=== PATIENT | male | born 1940 | race Caucasian/White ===

== ENCOUNTER 2019-02-01 12:04 | Inpatient (IN) | payer OTHER ==
[2019-02-01] VITALS (12 sets, daily range): BP systolic 84–121; BP diastolic 31–52
[~2019-02-01] VITALS: Ht 182.9 cm; Wt 127.9 kg
[~2019-02-01 12:04] MED LIST: FENOFIBRATE160 MG PO; FLOMAX0.4 MG PO; JANUVIA100 MG PO; LISINOPRIL-HCT1 EAC1 PO; METFORMIN HCL500 MG PO; PIOGLITAZONE15 MG; PROZAC20 MG PO; SIMVASTATIN40 MG PO; TIROSINT88 MCG PO; TRAMADOL 50 MG50 MG PO
[2019-02-01] MEDS ORDERED: MAGOX 400400 MG PO (12:12)
[2019-02-01] MEDS ORDERED: PROSCAR 5MG TABL5 MG PO (12:12)
[2019-02-01] MEDS ORDERED: TRIPLE ANTIBIO1 EAC1 TOP (12:12)
[2019-02-01] MEDS ORDERED: VITAMIN D250000 UNIT PO (12:13)
[2019-02-01 12:47] LABS: ABSOLUTE BASOPHILS 0.1 thou/uL (0.0-0.2); ABSOLUTE EOSINOPHILS 0.1 thou/uL (0.0-0.7); ABSOLUTE LYMPHOCYTES 1.1 thou/uL (0.8-5.3); ABSOLUTE MONOCYTES 0.4 thou/uL (0.0-1.2); ABSOLUTE NEUTROPHILS 7.3 thou/uL (1.6-8.1); BASOPHILS 0.7 %; EOSINOPHILS 1.1 %; HEMATOCRIT 29.4 % (42.0-52.0); HEMOGLOBIN 9.7 gm/dL (14.0-18.0); LYMPHOCYTES 12.2 %; MCH 27.2 pg (26.0-34.0); MCV 82.4 fL (80.0-100.0); MONOCYTES 4.8 %; MPV 7.2 fl. (7.2-11.1); NUCLEATED RBCS 0 /100WBC; PLATELET COUNT* 492 thou/uL (150-400); POLYS 81.2 %; RBC 3.56 mil/uL (4.50-6.00); RDW-CV 15.2 % (10.5-14.5); WBC 8.9 thou/uL (4.0-11.0)
[2019-02-01 12:58] LABS: ANION GAP 13 mmol/L (7-16); BUN 45 mg/dL (7-18); CALCIUM 9.3 mg/dL (8.5-10.1); CHLORIDE 93 mmol/L (98-107); CO2 23 mmol/L (21-32); CREATININE 1.7 mg/dL (0.6-1.3); GLUCOSE 239 mg/dL (70-99); POTASSIUM 5.2 mmol/L (3.5-5.1); SODIUM 129 mmol/L (136-145)
[2019-02-01 13:00] LABS: APTT 22.5 Seconds (25.0-31.3); INR 0.9; PROTIME 9.6 Seconds (9.20-11.50)
[2019-02-01 13:08] LABS: ALBUMIN 3.2 g/dL (3.4-5.0); ALKALINE PHOSPHATASE 71 U/L (46-116); SGOT 21 U/L (15-37); SGPT 20 U/L (30-65); TROPONIN-I LEVEL <0.06 ng/mL (<0.06)
[2019-02-01 13:23] LABS: TOTAL BILIRUBIN 0.1 mg/dL (<0.1-1.0)
--- NOTE | 2019-02-01 14:57 | NUR ---
CENTRAL LINE PLACEMENT CONFIRMED BY
[2019-02-01 15:30] LABS: URINE BILIRUBIN NEGATIVE (Negative); URINE BLOOD 3+ (Negative); URINE CLARITY CLEAR; URINE COLOR YELLOW; URINE GLUCOSE-RANDOM NEGATIVE (Negative); URINE KETONES NEGATIVE (Negative); URINE LEUKOCYTES-REFLEX NEGATIVE (Negative); URINE NITRITE-REFLEX NEGATIVE (Negative); URINE PROTEIN NEGATIVE (Negative); URINE SPECIFIC GRAVITY 1.015 (1.005-1.030); URINE UROBILINOGEN 0.2 E.U./dl (0.2-1.0)
[2019-02-01 15:38] LABS: SQUAMOUS 0-3 Few /LPF (0-3); URINE WBC-REFLEX 0-5 Rare /HPF (0-5)
[2019-02-01 15:39] LABS: BACTERIA-REFLEX 1-9 Few /HPF (None Seen); CASTS None Seen /LPF (None Seen); CRYSTALS None Seen /LPF (None Seen); URINE RBC 0-2 Rare /HPF (0-2)
--- NOTE | 2019-02-01 17:19 | NUR ---
PATIENT ADMITTED TO ICU ROOM 5 FOR HYPOTENSION. PRESSURES REMAIN STABLE AT THIS TIME. CLEAR LIQUIDS ORDERED, NO EVIDENCE OF STOOLS AT THIS TIME. PATIENT DOES REPORT DARK TARRY STOOLS, GI CONSULTED. NSR. BED IN LOWEST POSITION, CALL LIGHT IN REACH, USER ACCEPTANCE TESTER IN PLACE. SON WENT HOME FOR THE NIGHT.
[2019-02-02] VITALS (26 sets, daily range): BP systolic 86–117; BP diastolic 36–61
[2019-02-02 02:54] LABS: ABSOLUTE EOSINOPHILS 0.2 thou/uL (0.0-0.7); ABSOLUTE LYMPHOCYTES 1.2 thou/uL (0.8-5.3); ABSOLUTE MONOCYTES 0.6 thou/uL (0.0-1.2); ABSOLUTE NEUTROPHILS 5.9 thou/uL (1.6-8.1); BASOPHILS 0.5 %; EOSINOPHILS 2.4 %; HEMATOCRIT 20.8 % (42.0-52.0); LYMPHOCYTES 15.4 %; MCHC 32.8 g/dL (28.0-37.0); MCV 82.2 fL (80.0-100.0); MONOCYTES 7.2 %; MPV 6.3 fl. (7.2-11.1); NUCLEATED RBCS 0 /100WBC; POLYS 74.5 %; RBC 2.52 mil/uL (4.50-6.00); RDW-CV 14.8 % (10.5-14.5); WBC 7.9 thou/uL (4.0-11.0)
[2019-02-02 02:59] LABS: PLATELET COUNT* 347 thou/uL (150-400)
[2019-02-02 03:00] LABS: HEMOGLOBIN 6.8 gm/dL (14.0-18.0)
[2019-02-02 03:05] LABS: CALCIUM 7.5 mg/dL (8.5-10.1); CREATININE 1.1 mg/dL (0.6-1.3); POTASSIUM 4.6 mmol/L (3.5-5.1)
--- NOTE | 2019-02-02 05:13 | NUR ---
ASSUMED CARE AT 1910H, ON ROOM AIR AND PALE IN APPEARANCE. NO BM THE WHOLE SHIFT AND BP WAS SOFT. INFORM GI ABOUT CRITICAL RESULT OF HGB WITH ORDERS CARRIED OUT. WAITING FOR THE BLOOD. CONTINUE MONITORING AND TOWARDS GOAL.
[2019-02-02 09:15] LABS: HEMATOCRIT 25.5 % (42.0-52.0); HEMOGLOBIN 8.5 gm/dL (14.0-18.0)
[2019-02-02 11:30] LABS: HEMATOCRIT 22.3 % (42.0-52.0); HEMOGLOBIN 7.4 gm/dL (14.0-18.0); MCH 27.5 pg (26.0-34.0); MCHC 33.2 g/dL (28.0-37.0); MCV 82.8 fL (80.0-100.0); MPV 6.3 fl. (7.2-11.1); RBC 2.7 mil/uL (4.50-6.00); RDW-CV 14.4 % (10.5-14.5); WBC 7.6 thou/uL (4.0-11.0)
--- NOTE | 2019-02-02 12:28 | NUR ---
INITIAL ASSESSMENT: Pt evaluated for d/c planning needs. Pt is alert and is a poor historian. Pt lives at home with son and was independent with ADL's prior to admission. Pt plans on returning home on d/c from hospital. Will remain available to assist as needed.
--- NOTE | 2019-02-02 17:47 | NUR ---
VSS.CARDIAC MONITORING IN PLACE, TRACING SR.PT REMAINS ON ROOM AIR.CONTACT ISOLATION MAINTAINED.CHRISTOPHER SECURE AND PATENT.RIGHT AC IV AND LEFT AC IV SALINE LOCKED AND PATENT.RIGHT JUGULAR PATENT WITH IVF INFUSING PER ORDERS.PT TO BE NPO AT MIDNIGHT FOR EGD IN THE AM.PT INFORMED OF PLAN OF CARE AND COMMUNICATES UNDERSTANDING.Q2 HOUR POSITION CHANGE COMPLETED.PT LEFT RESTING IN BED WITH CALL LIGHT AND FALL PRECAUTIONS IN PLACE.WILL CONTINUE TO MONITOR FOR DURATION OF SHIFT.
[2019-02-02 20:12] LABS: HEMATOCRIT 21.2 % (42.0-52.0)
[2019-02-02 20:15] LABS: HEMOGLOBIN 6.9 gm/dL (14.0-18.0)
[2019-02-03] VITALS (26 sets, daily range): BP systolic 73–130; BP diastolic 28–93
[2019-02-03 00:58] LABS: HEMATOCRIT 24.9 % (42.0-52.0); HEMOGLOBIN 8.2 gm/dL (14.0-18.0)
[2019-02-03 02:06] LABS: GLYCOHEMOGLOBIN (HGB A1C) 8.1 % (4.8-5.6)
[2019-02-03 04:13] LABS: HEMATOCRIT 20.7 % (42.0-52.0); HEMOGLOBIN 7.1 gm/dL (14.0-18.0); MCH 28.1 pg (26.0-34.0); MCHC 34.4 g/dL (28.0-37.0); MCV 81.6 fL (80.0-100.0); MPV 6.3 fl. (7.2-11.1); RBC 2.53 mil/uL (4.50-6.00); RDW-CV 14.6 % (10.5-14.5); WBC 8.4 thou/uL (4.0-11.0)
--- NOTE | 2019-02-03 06:38 | NUR ---
ASSUMED CARE AT 1910, ON ROOM AIR.FOR EGD AND COLONOSCOPY TODAY.BOWEL PREP DONE BUT STILL NOT CLEAR.INFORM GI DOCTOR WITH ORDERS CARRIED OUT.EGD AND COLONOSCOPY WILL BE DONE AT 1300H.NO DISTRESS.LATEST HGB 7.1.CONTINUE MONITORING AND TOWARDS GOAL.
[2019-02-03 09:26] LABS: CALCIUM 7.4 mg/dL (8.5-10.1); POTASSIUM 4.3 mmol/L (3.5-5.1)
[2019-02-03 09:27] LABS: HEMATOCRIT 20.2 % (42.0-52.0)
[2019-02-03 09:31] LABS: HEMOGLOBIN 6.9 gm/dL (14.0-18.0)
[2019-02-03 16:05] LABS: HEMATOCRIT 20.3 % (42.0-52.0); MCH 28.3 pg (26.0-34.0); MCHC 33.9 g/dL (28.0-37.0); MCV 83.4 fL (80.0-100.0); MPV 6.3 fl. (7.2-11.1); RBC 2.43 mil/uL (4.50-6.00); RDW-CV 14.9 % (10.5-14.5); WBC 6.4 thou/uL (4.0-11.0)
[2019-02-03 16:07] LABS: HEMOGLOBIN 6.9 gm/dL (14.0-18.0)
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
--- NOTE | 2019-02-03 17:46 | NUR ---
VSS.HAT AND CAP OPENER IN PLACE,TRACING SR.RIGHT JUGULAR PATENT AND SALINE LOCKED.RIGHT AND LEFT AC IV PATENT AND SALINE LOCKED.CHRISTOPHER SECURE AND PATENT.EGD/COLON COMPLETED TODAY.PT ADVANCED AND TOLERATING CLEAR LIQUID DIET.CONTACT ISOLATION MAINTAINED.PT MADE TELEMETRY STATUS AND WILL TRANSFER TO TELE AFTER SHIFT CHANGE.PT HAS BEEN INFORMED AND COMMUNICATES UNDERSTANDING.Q2 HOUR POSITION CHANGE COMPLETED.CALL LIGHT AND FALL PRECAUTIONS IN PLACE.WILL CONTINUE TO MONITOR FOR DURAITON OF SHIFT.
[2019-02-03 21:00] LABS: HEMATOCRIT 20.3 % (42.0-52.0)
[2019-02-03 21:02] LABS: HEMOGLOBIN 6.7 gm/dL (14.0-18.0)
[2019-02-04 00:15] VITALS: BP 110/38
[2019-02-04 03:00] VITALS: BP 107/42
--- NOTE | 2019-02-04 05:38 | NUR ---
PATIENT PARTIALLY PROGRESSING TOWARDS GOALS: VSS ON ROOM AIR. PATIENT DENIES PAIN AND DISCOMFORT. REPOSITIONED Q2H. BORDERED FOAM DRESSING APPLIED TO COCCYX WOUND. CHRISTOPHER REMAINS IN PLACE WITH GOOD OUTPUT. PATIENT RECEIVED ONE UNIT OF PRBC FOR LOW HGB. TOLERATED BLOOD TRANSFUSION WITH NO REACTIONS. REDRAW ORDERED FOR THIS AM. CALL LIGHT WITHIN REACH
[2019-02-04 06:38] LABS: HEMATOCRIT 21.4 % (42.0-52.0); MCHC 32.8 g/dL (28.0-37.0); MCV 82.1 fL (80.0-100.0); MPV 6.3 fl. (7.2-11.1); RBC 2.6 mil/uL (4.50-6.00); WBC 8.4 thou/uL (4.0-11.0)
[2019-02-04 07:50] VITALS: BP 122/54
[2019-02-04 09:19] LABS: CALCIUM 7.4 mg/dL (8.5-10.1); CREATININE 0.8 mg/dL (0.6-1.3); POTASSIUM 3.9 mmol/L (3.5-5.1)
[2019-02-04 11:58] VITALS: BP 125/53
--- NOTE | 2019-02-04 12:10 | NUR ---
SW met with pt to discuss safe dc planning. SW informed pt of recommendation for SNF placement and pt was not open to very many options for SNF. Pt said he does not want [facility], [facility], and other places pt named but then pt also was not sure of what would be his preference. Pt okay with SW sending referral to [facility]; pt was trying to think of a place near [place]. SW faxed referral for SNF to [facility] and will continue to follow to assist with safe dc placement. Therapy notes pending. [facility] ph [phone] fax [phone]
--- NOTE | 2019-02-04 14:59 | NUR ---
ASSESSMENT COMPLETE. PT ALERT AND ORIENTED X3, FORGETFUL AT TIMES. PT IS BLIND. CASE MANAAGEMENT CONSULT FOR PLACEMENT. CT CHEST THIS AFTERNOON. PT UP IN CHAIR PART OF THE DAY. PT/OT. ISOLATION DC'D. Q2 TURN. SR WITH 1ST DEGREE ON MONITOR. VSS. ACCU CHECK ACHS. CHRISTOPHER IN PLACE WITH ADEQUATE OUTPUT. SEE ASSESSMENT AND VITALS FOR OTHER DETAILS. CALL LIGHT WITHIN REACH, WILL CONTINUE PLAN OF CARE
[2019-02-04 16:00] VITALS: BP 131/60
[2019-02-04 20:00] VITALS: BP 113/53
[2019-02-05] VITALS: BP 92/40
[2019-02-05 04:00] VITALS: BP 103/47
--- NOTE | 2019-02-05 04:27 | NUR ---
PATIENT PROGRESSING TOWARDS GOALS: VSS ON ROOM AIR. PATIENT DENIES PAIN AND DISCOMFORT. CHRISTOPHER REMAINS IN PLACE WITH ADEQUATE OUTPUT. REPOSITIONED Q2H WHEN PATIENT ALLOWS. EDUCATED PATIENT ON IMPORTANCE OF REPOSITIONING AND PREVENTION OF WOUNDS, VERBALIZES UNDERSTANDING BUT STATES "I AM COMFORTABLE WHERE I AM." NO BLEEDING NOTED THIS SHIFT. CALL LIGHT WITHIN REACH
[2019-02-05 12:06] VITALS: BP 107/44
[2019-02-05 15:41] VITALS: BP 115/49
[2019-02-05 15:57] LABS: ABSOLUTE EOSINOPHILS 0.2 thou/uL (0.0-0.7); ABSOLUTE LYMPHOCYTES 0.9 thou/uL (0.8-5.3); ABSOLUTE MONOCYTES 0.6 thou/uL (0.0-1.2); ABSOLUTE NEUTROPHILS 6.1 thou/uL (1.6-8.1); BASOPHILS 0.6 %; EOSINOPHILS 3.1 %; HEMATOCRIT 22.1 % (42.0-52.0); HEMOGLOBIN 7.3 gm/dL (14.0-18.0); LYMPHOCYTES 11.2 %; MCH 27.4 pg (26.0-34.0); MCHC 32.9 g/dL (28.0-37.0); MCV 83.3 fL (80.0-100.0); MONOCYTES 7.7 %; MPV 6.6 fl. (7.2-11.1); NUCLEATED RBCS 0 /100WBC; PLATELET COUNT* 339 thou/uL (150-400); POLYS 77.4 %; RBC 2.65 mil/uL (4.50-6.00); RDW-CV 15.9 % (10.5-14.5); WBC 7.9 thou/uL (4.0-11.0)
[2019-02-05 16:13] LABS: CALCIUM 7.6 mg/dL (8.5-10.1); POTASSIUM 3.6 mmol/L (3.5-5.1); TOTAL BILIRUBIN 0.1 mg/dL (<0.1-1.0); TOTAL PROTEIN 5.5 g/dL (6.4-8.2)
--- NOTE | 2019-02-05 16:46 | NUR ---
ASSUMED PT CARE AT 0700, PT A&O X4, VSS, RA, PT CHANGED TO MED SURG STATUS, FULL ASSESSMENT CHARTED. PT REMAINS ON IV FLUIDS AND ABTS, TOLERATING WELL. CHRISTOPHER CATH PATENT AND DRAINING YELLOW URINE WITH MINIMAL SEDIMENT. HOURLY ROUNDING COMPLETED.
[2019-02-05 17:04] LABS: ESR (SEDRATE) 37 mm/hr (0-20)
[2019-02-05 22:30] VITALS: BP 109/51
--- NOTE | 2019-02-05 22:30 | NUR ---
ASSUMED CARE OF PT AFTER REPORT AT 1930. PT A&OX4. VSS. PHYSICAL ASSESSMENT COMPLETED AND CHARTED. PT ON RA. PT ON MED SURG STATUS. PT DENIES ANY PAIN OR DISCOMFORT. PT TURNED TO SIDES. MEDS GIVEN PER SEP. CALL LIGHT WITHIN REACH. GAVE REPORT TO ROSCOE FINNEY P TRANSFERRED TO RM 112 VIA BED.
--- NOTE | 2019-02-06 04:43 | NUR ---
PT TRASFERED FROM 2 EAST AT 2225. ALERT AND ORIENTED. VITALS STABLE RA. IV FLUID, ANTIBIOTICS GIVEN ORDERED. CHRISTOPHER IN PLACE, DRAINING LIGHT YELLOW URINE. PT DENIED PAIN. NO NAUSEA OR VOMITING. HOURLY ROUNDING COMPLETED. WILL CONTINUE TO MONITOR.
[2019-02-06 06:10] LABS: ABSOLUTE EOSINOPHILS 0.3 thou/uL (0.0-0.7); ABSOLUTE LYMPHOCYTES 1.5 thou/uL (0.8-5.3); ABSOLUTE MONOCYTES 0.6 thou/uL (0.0-1.2); ABSOLUTE NEUTROPHILS 4.5 thou/uL (1.6-8.1); BASOPHILS 0.4 %; EOSINOPHILS 4.5 %; HEMATOCRIT 20.3 % (42.0-52.0); LYMPHOCYTES 21.4 %; MCH 27.5 pg (26.0-34.0); MCV 83.2 fL (80.0-100.0); MONOCYTES 8.3 %; MPV 6.6 fl. (7.2-11.1); NUCLEATED RBCS 0 /100WBC; PLATELET COUNT* 305 thou/uL (150-400); POLYS 65.4 %; RBC 2.44 mil/uL (4.50-6.00); RDW-CV 16.2 % (10.5-14.5); WBC 6.8 thou/uL (4.0-11.0)
[2019-02-06 06:12] LABS: CALCIUM 7.6 mg/dL (8.5-10.1); CREATININE 0.9 mg/dL (0.6-1.3); POTASSIUM 3.6 mmol/L (3.5-5.1)
[2019-02-06 06:20] LABS: HEMOGLOBIN 6.7 gm/dL (14.0-18.0)
[2019-02-06 07:20] VITALS: BP 114/56
[2019-02-06 09:59] VITALS: BP 110/50; BP 110/52; BP 114/53; BP 117/56
[2019-02-06 13:57] LABS: HEMATOCRIT 21.7 % (42.0-52.0); HEMOGLOBIN 7.3 gm/dL (14.0-18.0)
[2019-02-06 16:00] VITALS: BP 119/63
--- NOTE | 2019-02-06 17:00 | NUR ---
PT REMAINED ALERT AND ORIENTED, SOME CONFUSION PRESENT AND PT HARD OF HEARING. PT REFUSES TO GET UP OUT OF BED AND REQUESTS THE BEDPAN, PT STATES THEY DO NOT GET UP AT HOME. 1 UNIT OF BLOOD GIVEN PER PROTOCOL. FLUIDS AND ABX RUNNING ORDERED. PICTURE OF BOTTOM TAKEN. FALL RISK PRECAUTIONS IN PLACE. HOURLY ROUNDING COMPLETED. WILL CONTINUE TO MONITOR.
[2019-02-06 20:20] VITALS: BP 115/56
[2019-02-07 01:30] VITALS: BP 140/57
--- NOTE | 2019-02-07 05:38 | NUR ---
PT ALERT AND ORIENTED. MEDS, FLUIDS GIVEN ORDERED. PT DENIED PAIN. CHRISTOPHER IN PLACE. HOURLY ROUNDINGS, Q2TURN COMPLETED. WILL CONTINUE TO MONITOR.
[2019-02-07 06:44] LABS: ABSOLUTE EOSINOPHILS 0.3 thou/uL (0.0-0.7); ABSOLUTE LYMPHOCYTES 1.3 thou/uL (0.8-5.3); ABSOLUTE MONOCYTES 0.7 thou/uL (0.0-1.2); ABSOLUTE NEUTROPHILS 5.1 thou/uL (1.6-8.1); BASOPHILS 0.6 %; EOSINOPHILS 4.3 %; HEMATOCRIT 22.5 % (42.0-52.0); HEMOGLOBIN 7.4 gm/dL (14.0-18.0); LYMPHOCYTES 17.8 %; MCH 27.4 pg (26.0-34.0); MCHC 32.7 g/dL (28.0-37.0); MCV 83.9 fL (80.0-100.0); MONOCYTES 9.1 %; MPV 6.6 fl. (7.2-11.1); NUCLEATED RBCS 0 /100WBC; PLATELET COUNT* 294 thou/uL (150-400); POLYS 68.2 %; RBC 2.69 mil/uL (4.50-6.00); RDW-CV 16.2 % (10.5-14.5); WBC 7.5 thou/uL (4.0-11.0)
[2019-02-07 06:53] LABS: ALBUMIN 1.9 g/dL (3.4-5.0); CALCIUM 7.5 mg/dL (8.5-10.1); CREATININE 0.9 mg/dL (0.6-1.3); POTASSIUM 3.3 mmol/L (3.5-5.1); TOTAL BILIRUBIN 0.3 mg/dL (<0.1-1.0); TOTAL PROTEIN 5.1 g/dL (6.4-8.2)
[2019-02-07 08:45] VITALS: BP 136/59
[2019-02-07 10:37] LABS: % SATURATION 6 % (20-39); IRON 15 ug/dL (50-175)
--- NOTE | 2019-02-07 12:00 | NUR ---
SPOKE WITH YASMEEN/LAWSON BERNABE [phone]. SHE SAID SHE DID NOT RECEIVE A REFERRAL ON THURSDAY. PRINTED NEW REFERRAL AND FAXED TO HER AT [phone]. INFORMED HER PT.NOT READY FOR DISCHARGE TODAY.
--- NOTE | 2019-02-07 19:00 | NUR ---
PATIENT PLEASANT AND COOPERATIVE W/ ASSESS AND CARES THRU SHIFT. ALERT AND ORIENTED, [place]. PATIENT GOT OOB WITH THERAPY THIS AFTERNOON, OTHERWISE, CONTINUES TO REFUSE TO GET OOB, REQUESTING BEDPAN. CHRISTOPHER CATH INTACT, NOTED CL YELLOW URINE THIS SHIFT. HRLY ROUNDING DONE. ~TJRN
[2019-02-07 21:30] VITALS: BP 114/66
--- NOTE | 2019-02-08 05:11 | NUR ---
PT LAERT AND ORIENTED. VSS ON RA. ASSESSMENT DOCUMENTED. MEDS GIVEN PER EMAR. PT SLEPT MOST OF SHIFT. DENIES N/V AND PAIN THIS SHIFT. PT DID NOT HAVE BM THIS SHIFT. BUT SAYS LAST BM WAS NORMAL WITHOUT ANY BLOOD. CALL LIGHT WITHIN REACH. HOURLY ROUNDINGS MADE. WILL CONTINUE TO MONITOR.
[2019-02-08 05:18] LABS: ABSOLUTE EOSINOPHILS 0.3 thou/uL (0.0-0.7); ABSOLUTE LYMPHOCYTES 1.3 thou/uL (0.8-5.3); ABSOLUTE MONOCYTES 0.8 thou/uL (0.0-1.2); ABSOLUTE NEUTROPHILS 5.6 thou/uL (1.6-8.1); BASOPHILS 0.6 %; EOSINOPHILS 4.1 %; HEMATOCRIT 24.3 % (42.0-52.0); HEMOGLOBIN 8.2 gm/dL (14.0-18.0); LYMPHOCYTES 16.3 %; MCH 28.4 pg (26.0-34.0); MCHC 33.8 g/dL (28.0-37.0); MCV 84.1 fL (80.0-100.0); MONOCYTES 9.8 %; MPV 6.9 fl. (7.2-11.1); NUCLEATED RBCS 0 /100WBC; PLATELET COUNT* 308 thou/uL (150-400); POLYS 69.2 %; RBC 2.89 mil/uL (4.50-6.00); RDW-CV 16.4 % (10.5-14.5); WBC 8.1 thou/uL (4.0-11.0)
[2019-02-08 05:29] LABS: CALCIUM 8.3 mg/dL (8.5-10.1); CREATININE 0.8 mg/dL (0.6-1.3); MAGNESIUM 1.8 mg/dL (1.8-2.4)
[2019-02-08 05:30] LABS: POTASSIUM 4.6 mmol/L (3.5-5.1)
[2019-02-08 07:10] VITALS: BP 114/46
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
[2019-02-08 16:30] VITALS: BP 142/45
--- NOTE | 2019-02-08 17:20 | NUR ---
PT REMAINED ALERT AND ORIENTED. PT RESTING IN ROOM. PT UP TO CHAIR TODAY. FALL RISK PRECAUTIONS IN PLACE. HOURLY ROUNDING COMPLETED. WILL CONTINUE TO MONITOR.
[2019-02-08 19:50] VITALS: BP 117/57
--- NOTE | 2019-02-09 04:38 | NUR ---
PT ALERT AND ORIENTED. VSS ON RA. ASSESSMENT DOCUMENTED. MEDS GIVNE PER EMAR. BM NOTED THIS SHIFT. PT SLEPT WELL THIS SHIFT. CHRISTOPHER IN PLACE. PT DENIES N/V THIS SHIFT. CALL LIGHT WITHIN REACH. HOURLY ROUNDINGS MADE. AWAITING SNF PLACEMENT. WILL CONTINUE TO MONITOR.
--- NOTE | 2019-02-09 04:43 | NUR ---
PT ALERT AND ORIENTED. SOMETIMES ANXIOUS. VSS ON 2L NC. ASSESSMENT COMPLETED AND DOCUMENTED. MEDS GIVEN PER EMAR. GIRLFRIEND AT BEDSIDE. BIPAP AT HS. PT TOOK OFF BIPAP SEVERAL TIMES BECAUSE HE FELT ANXIOUS. POSSIBLE DC TO HOME WITH HH TODAY. CALL LIGHT WITHIN REACH. HORULY ROUNDINGS MADE. WILL CONTINUE TO MONITOR.
[2019-02-09 05:14] LABS: ABSOLUTE BASOPHILS 0.1 thou/uL (0.0-0.2); ABSOLUTE EOSINOPHILS 0.3 thou/uL (0.0-0.7); ABSOLUTE LYMPHOCYTES 1.3 thou/uL (0.8-5.3); ABSOLUTE MONOCYTES 0.7 thou/uL (0.0-1.2); ABSOLUTE NEUTROPHILS 5.4 thou/uL (1.6-8.1); BASOPHILS 0.7 %; HEMATOCRIT 24.6 % (42.0-52.0); HEMOGLOBIN 8.2 gm/dL (14.0-18.0); LYMPHOCYTES 16.3 %; MCH 28.2 pg (26.0-34.0); MCHC 33.1 g/dL (28.0-37.0); MCV 85.2 fL (80.0-100.0); NUCLEATED RBCS 0 /100WBC; PLATELET COUNT* 309 thou/uL (150-400); RBC 2.89 mil/uL (4.50-6.00); RDW-CV 16.5 % (10.5-14.5); WBC 7.7 thou/uL (4.0-11.0)
[2019-02-09 05:33] LABS: CALCIUM 8.3 mg/dL (8.5-10.1); CREATININE 0.7 mg/dL (0.6-1.3); POTASSIUM 4.3 mmol/L (3.5-5.1)
[2019-02-09 07:25] VITALS: BP 128/64
--- NOTE | 2019-02-09 10:01 | NUR ---
CORNER FORMER INFORMED THAT THE PATIENT WOULD LIKE A REFERRAL SENT TO THE [facility] FOR SKILLED TO POSSIBLY LTC. D/C PART TIME SPOKE TO JONES WITH ADMISSIONS AT [facility] TO INFORM OF THE REFRRAL FOR SKILLED TO LTC, AND PATIENT'S INSURANCE. JONES CONFIRMS BED AVAILABILITY AND ABILITY TO ACCEPT THE PATIENT'S INSURANCE. D/C PART TIME FAXED PATIENT'S FACESHEET, CLINICAL INFO, AND PT/OT NOTES. D/C PART TIME ALSO INFORMED THERAPIES THAT UPDATED NOTES WERE NEEDED TO FACILITATE D/C TO SKILLED. UPDATED PT/OT NOTES WILL NEED TO BE FAXED TO [facility] WHEN AVAILABLE. CM WILL REMAIN AVAILABLE TO ASSIST AND FOLLOW NEEDED. [facility] PHONE: [phone] FAX: [phone]
[2019-02-09] MEDS ORDERED: BENADRYL25 MG PO (15:52)
[2019-02-09] MEDS ORDERED: HUMALOG100 UNIT/1 SUBQ (15:53)
[2019-02-09] MEDS ORDERED: MELATONIN5 M1 PO (15:54)
[2019-02-09] MEDS ORDERED: MILK OF MA400 MG/5 M PO (15:55)
[2019-02-09] MEDS ORDERED: PROMETHAZINE HC25 M1 PO (15:56)
[2019-02-09] MEDS ORDERED: FLAGYL500 M1 PO (15:58)
[2019-02-09] MEDS ORDERED: CIPRO500 MG PO (15:59)
[2019-02-09 16:02] VITALS: BP 128/64
--- NOTE | 2019-02-09 16:56 | NUR ---
PT CHART COPIED. CHRISTOPHER AND IV REMOVED. PT CLOTHES LEFT BEHIND AND THROWN OUT. SCRUBS GIVEN TO PT. PT BELONGINGS GATHERED. REPORT GIVEN. FALL RISK PRECAUTIONS IN PLACE. HOURLY ROUNDING COMPLETED. PT LEFT WITH TRANSPORTER TO FACILITY.
== END 2019-02-09 16:57 | DRG 871 ==
LOC: M.ERS 12:04 → M.TBA-ER 13:38 → M.ICU 13:38 → M.2W 02-03 19:11 → M.ORTHSURG 02-05 22:26
PROVIDERS: Family Medicine; Internal Medicine; Internal Medicine Gastroenterology; Nurse Practitioner Adult Health; Nurse Practitioner Family; ADMIT Internal Medicine
PROC: 02HV33Z Insertion of Infusion Device into Superior Vena Cava, Percutaneous Approach (ICD-10-PCS; principal; 2019-02-01)
PROC: 30233N1 Transfusion of Nonautologous Red Blood Cells into Peripheral Vein, Percutaneous Approach (ICD-10-PCS; 2019-02-02)
PROC: 0DB98ZX Excision of Duodenum, Via Natural or Artificial Opening Endoscopic, Diagnostic (ICD-10-PCS; 2019-02-03)
PROC: 0W3P8ZZ Control Bleeding in Gastrointestinal Tract, Via Natural or Artificial Opening Endoscopic (ICD-10-PCS; 2019-02-03)
DX: A41.9 Sepsis, unspecified organism (principal); J69.0 Pneumonitis due to inhalation of food and vomit; N17.0 Acute kidney failure with tubular necrosis; K57.33 Diverticulitis of large intestine without perforation or abscess with bleeding; R65.21 Severe sepsis with septic shock; E87.1 Hypo-osmolality and hyponatremia; D62 Acute posthemorrhagic anemia; K26.9 Duodenal ulcer, unspecified as acute or chronic, without hemorrhage or perforation; R31.29 Other microscopic hematuria; E66.01 Morbid (severe) obesity due to excess calories; K44.9 Diaphragmatic hernia without obstruction or gangrene; I95.9 Hypotension, unspecified; R91.1 Solitary pulmonary nodule; I10 Essential (primary) hypertension; I25.10 Atherosclerotic heart disease of native coronary artery without angina pectoris; N40.0 Benign prostatic hyperplasia without lower urinary tract symptoms; E11.9 Type 2 diabetes mellitus without complications; E78.5 Hyperlipidemia, unspecified; Z79.84 Long term (current) use of oral hypoglycemic drugs; Z95.5 Presence of coronary angioplasty implant and graft; Z68.38 Body mass index [BMI] 38.0-38.9, adult